=== PATIENT | female | born 1940 | race Caucasian/White ===

== ENCOUNTER → 2019-03-12 | Outpatient (CLI) | payer OTHER ==
[~2019-03-12] MED LIST: AMITRIPTYLINE H50 M2 PO; ARMOUR THYROID120 M1 PO; ARMOUR THYROID180 M1 PO; ASPIR 8181 MG PO; CHLORZOXAZONE500 MG PO; LEXAPRO 10 MG T10 M2 PO; LIPITOR 20 MG T20 M1 PO; MELATONIN5 M1 PO; MOBIC15 MG PO; NIFEDIPINE ER30 M1 PO; RELPAX40 MG PO; STOOL SOFTENER100 MG PO
== END ==
LOC: CAT 10:48
DX: M19.012 Primary osteoarthritis, left shoulder (principal); M25.712 Osteophyte, left shoulder; M25.812 Other specified joint disorders, left shoulder

== ENCOUNTER 2019-05-06 06:37 | Inpatient (IN) | payer OTHER ==
[2019-04-28 13:39] LABS: HEMATOCRIT 42.9 % (37.0-47.0); HEMOGLOBIN 14.1 gm/dL (12.0-15.0); MCHC 32.8 g/dL (28.0-37.0); MCV 85.3 fL (80.0-100.0); RBC 5.02 mil/uL (4.20-5.00); RDW 14.3 % (10.5-14.5); WBC 7.3 thou/uL (4.0-11.0)
[2019-04-28 13:45] LABS: CALCIUM 9.3 mg/dL (8.5-10.1); CREATININE 0.9 mg/dL (0.6-1.0); POTASSIUM 4.4 mmol/L (3.5-5.1)
[2019-04-28 13:47] LABS: PROTIME 10.5 Seconds (9.3-11.4)
[2019-04-28 13:49] LABS: URINE BILIRUBIN NEGATIVE (Negative); URINE BLOOD NEGATIVE (Negative); URINE CLARITY CLEAR; URINE COLOR YELLOW; URINE GLUCOSE-RANDOM* NEGATIVE (Negative); URINE KETONES NEGATIVE (Negative); URINE LEUKOCYTES-REFLEX NEGATIVE (Negative); URINE NITRITE-REFLEX NEGATIVE (Negative); URINE PROTEIN (DIPSTICK) NEGATIVE (Negative); URINE SPECIFIC GRAVITY <= 1.005 (1.005-1.035); URINE UROBILINOGEN 0.2 E.U./dl (0.2-1.0)
--- NOTE | 2019-04-28 14:14 | EKG ---
[address] [address] ELECTROCARDIOGRAM REPORT Name: MICHELL SHAH Room #: PRE IN M.RAnali#: [id number] Admission: Attend Phys: Domo Stuart Discharge: Date of : 42 Report #: [id number] THIS REPORT FOR: //name// [facility] Test Date: 2019-04-28 Test Time: 13:21:21 Pat Name: MICHELL SHAH Department: Room: Gender: F Aviation Electronics Technician: kevin : 1940 Requested By: Domo Duncan Order Number: [id number] MD: Leonard Madison Measurements Intervals [place] Rate: 82 P: 53 VT: 172 QRS: 11 QRSD: 88 T: 42 QT: 382 QTc: 446 Interpretive Statements Sinus rhythm Abnormal R-wave progression, early transition Compared to ECG 04/08/2018 10:53:39 No significant changes Electronically Signed On 04-28-2019 14:14:14 CDT by Leonard Madison [email or web address] <ELECTRONICALLY SIGNED> By: Leonard Madison MD 04/28/19 1414 1320 20 Leonard Madison MD /ANALI
[~2019-05-06] VITALS: Ht 162.6 cm; Wt 68.5 kg
[~2019-05-06 06:37] MED LIST changes: +ALEVE220 MG PO
[2019-05-06 07:00] VITALS: BP 157/82
[2019-05-06 13:12] VITALS: BP 136/79
--- NOTE | 2019-05-06 13:17 | NUR ---
Patient arrived on unit at 1200 after Left Total Shoulder Replacement. Patient is alert and oriented x's 4. She is wearing a shoulder immobilizer. Dressing is covered with Polar Barrie and Quan Bandage. She denies pain, fingers are still numb from the analgesic "block." Vital signs are stable. She is drinking clear liquids. She is wearing SCD's to bilateral lower legs. Will continue to monitor.
[2019-05-06 15:49] VITALS: BP 124/73
[2019-05-06 20:25] VITALS: BP 140/74
[2019-05-07 05:07] VITALS: BP 137/68
--- NOTE | 2019-05-07 05:10 | NUR ---
PT IS O/A X4.PT IS DAY 1 POST OP FOR LT TOTAL SHOULDER REPLACMENT WITH JUAN LUIS, JAKOB WRAP AND SHOULDER IMMOBILISER.PT HAS POLAR PACK AND SCD IN PLACE.PT UP WITH ASSIST TO BSC AND BATHROOM.PT REQUESTED FOR HOME ROUTINE MEDS TO BE STARTED AND WAS STARTED.CONTINUE POC TILL EOS
[2019-05-07 05:29] LABS: HEMATOCRIT 34.6 % (37.0-47.0); HEMOGLOBIN 11.6 gm/dL (12.0-15.0)
[2019-05-07 05:40] LABS: POTASSIUM 3.9 mmol/L (3.5-5.1)
--- NOTE | 2019-05-07 06:43 | NUR ---
PT C/O PAIN, DR HARRY LOPEZ,GOT A CALL BACK FROM HIS FISHING BOAT MATE, UNFORTUNATELY WHEN THE MED WAS VERIFIED,THERE WAS A PROBLEM ON THE INSTRUCTIONS.PT FINALLY GOT HER MED BUT NOT HAPPY THAT THE PHYSICIAN DID NOT PUT IN PAIN MED FOR HER.PT FELT BETTER AFTER SHE RECEIVED HER MED.
[2019-05-07 07:49] VITALS: BP 148/79
--- NOTE | 2019-05-07 11:47 | NUR ---
ASSESSMENT-PT LIVES IN A HOUSE, HER 24 Y/O GRANDDTR WHO WORKS NIGHTS & SLEEPS DURING THE DAY. PRIOR PT SAYS SHE WAS WALKING ON HER OWN AND DOING HER OWN ADLS. PT WILL NEED IMMOBILIZER FOR A NUMBER OF WEEKS. PT ASKING ABOUT GOING TO [facility] FOR REHAB AND SHE SAYS SHE HAS BEEN THERE BEFORE. CASE DISCUSSED WITH THERAPIES & THEY ARE REC. THIS WELL. WILL ASK DC BOWLING BALL PATCHER TO FAX REFERRAL TO [facility]. FOLLOWING TO ASSIST WITH DC PLANNING.
--- NOTE | 2019-05-07 12:04 | NUR ---
FAXED REFERRAL TO [facility] SPOKE WITH SANNA IN ADM SHE DOES NOT HAVE A BED AVAILABLE AT THIS TIME. DP TO FOLLOW.
--- NOTE | 2019-05-07 14:12 | NUR ---
PT DISCHARGING TODAY TO [facility] FAXED DC ORDERS/SUMMARY TO FACILITY SPOKE WITH JOLEEN IN ADM SHE RECEIVED DC ORDERS AND TRANSPORT ARRANGED BY [facility]IATR[facility]RETCHER WILDWOOD FOR 1829. SW NOTIFIED PT OF TIME AND SHE WILL NOTIFY FAMILY. [facility] FROM [facility] ONLY HAS A SEMI PVT RM AVAILABLE NOT AND WILL TRANSITION PT TO PVT RM ONCE AVAILABLE. UNIT NOTIFIED AND CHART COPY PER US. RN TO CALL REPORT TO [phone].
--- NOTE | 2019-05-07 14:32 | NUR ---
FAXED REFERRAL TO [facility] SPOKE WITH ALY IN ADM THEY RECEIVED REFERRAL BUT DO NOT HAVE A BED AVAILABLE TIL NEXT WEEK FOR SKILLED. [facility] SPOKE WITH ANTONIO IN ADM SHE RECEIVED REFERRAL AND WILL REVIEW LET HER KNOW THAT IF SHE CAN ACCEPT TO SUBMIT FOR AUTH. DP TO FOLLOW.
[2019-05-07 17:18] VITALS: BP 134/62
[2019-05-07 19:10] VITALS: BP 161/83
--- NOTE | 2019-05-07 19:59 | NUR ---
PATIENT PROGRESSING UP IN THE CHAIR AND UP TO BATHROOM WITH ASSISTANCE. PAIN CONTROLLED WITH PAIN MEDS DESIRED PAIN LEVEL REACHED AND ABLE TO NAP THIS AFTERNOON. TAKING PO WITHOUT NAUSEA OR EMESIS, IV FLUIDS DC'D AND IV IS SALINE LOCKED.
[2019-05-08 04:28] VITALS: BP 171/92
--- NOTE | 2019-05-08 07:42 | NUR ---
PATIENT ALERT AND ORIENTED X4. C/O PAIN, MED GIVEN. UP WITH ASSIST OF 1. POLAR PACK ON L SHOULDER WITH AN IMMOBILIZER. PASSING GAS BUT NO BM YET. SCD'S ON TWILA. COOPERATIVE. SLEPT OFF AND ON DURING NIGHT.
[2019-05-08 08:00] VITALS: BP 154/88
--- NOTE | 2019-05-08 11:10 | NUR ---
ASSUMED PATIENT CARE AT 7 AM. PATIENT IS ALERT AND ORIENTED X4, CALM, COOL, AND COOPERATIVE. PATIENT REPORTED PAIN OF A 4 ON A SCALE OF1-10 THIS MORNING AND HYDROCODONE WAS ADMINISTERED. PAIN WAS REASSESSED 45 MINUTES LATER AND THE PATIENT REPORTED PAIN AT A 2 ON A SCALE OF ONE TO TEN, PAIN WAS PARTIALLY RELIEVED. PATIENT WALKED THROUGH THE HALLWAY WITH PHYSICAL THERAPY WITHOUT INTOLERABLE PAIN. PHYSICAL THERAPIST STATED IN HIS OPINION SHE IS READY FOR DISCHARGE. PATIENT STATES SHE FEELS READY FOR DISCHARGE AND IS EXCITED TO LEAVE THE HOSPITAL.
[2019-05-08 11:23] VITALS: BP 154/88
[2019-05-08 13:21] VITALS: BP 154/88
--- NOTE | 2019-05-08 15:30 | NUR ---
PT DECIDED TO GO HOME WITH HH FAXED REFERRAL TO [facility] SPOKE WITH SARBJIT IN INTAKE SHE CAN ACCEPT PT AT DISCHARGE. FAXED DC ORDERS/SUMMARY RECEIVED CONFIRMATION AND THEY WILL NOTIFY PT TIME OF VISITS.
[2019-05-08 15:35] VITALS: BP 154/88
--- NOTE | 2019-06-10 11:38 | O ---
[facility] [place] [address] OPERATIVE REPORT Name: MICHELL SHAH Room #: 439-P [facility] IN M.R.#: [id number] Admission: 05/06/19 Attend Phys: Domo Stuart Discharge: 05/08/19 Date of : 42 Report #: [id number] THIS REPORT FOR: //name// CC: Domo Stephenson DATE OF SERVICE: 05/06/2019 PREOPERATIVE DIAGNOSES: Left shoulder pain, osteoarthritis, biceps tendinopathy. POSTOPERATIVE DIAGNOSES: Left shoulder pain, osteoarthritis, biceps tendinopathy. PROCEDURE PERFORMED: Left total shoulder arthroplasty with open biceps tenodesis. SURGEON: Domo Duncan MD OXYGEN TANK FILLER: Yasmine Rodriguez PA-C. ANESTHESIA: General with preoperative ultrasound-guided interscalene block. FLUIDS: Approximately 1000 mL of crystalloid. ESTIMATED BLOOD LOSS: Approximately 50 mL. IMPLANTS UTILIZED: De[employer] Global Unite size 12 stem and proximal body with 44 x 18 mm eccentric humeral head and a size 44 mm anchor peg glenoid. DESCRIPTION OF PROCEDURE: After proper identification of the patient and operative site in preoperative holding area, the operative site was signed by myself. Prophylactic antibiotics were given. The patient elected to receive an ultrasound-guided block after reviewing the risks, benefits, alternatives and potential complications with anesthesia. After a satisfactory block, the patient was brought back to the operative suite after induction of satisfactory general endotracheal anesthesia, left shoulder was examined. The patient's range of motion was limited in all planes as noted in the preoperative assessment. She was carefully positioned in the beach chair with head of bed elevated approximately 40 degrees. The limb was sterilely prepped and draped in usual manner and a [employer] limb positioning system was utilized throughout the entire procedure to aid in patient limb positioning. Final skin draping was with Ioban. Anterior deltopectoral approach was planned. Skin was incised sharply. Full thickness skin flaps were developed. Deltopectoral interval was identified. Cephalic vein was retracted. Subdeltoid space was bluntly freed up. A Eder deltoid retractor was used to retract the soft tissues. At this [facility] [address] [place] [address] OPERATIVE REPORT Name: MICHELL SHAH Room #: 439-P DIS IN M.R.#: [id number] Admission: 05/06/19 Attend Phys: Domo Stuart Discharge: 05/08/19 Date of : 42 Report #: [id number] point, the upper border of the pectoralis major was carefully divided. Biceps tenodesis was performed in the undersurface of the pectoralis major, which was then subsequently repaired. Proximal biceps was followed into the bicipital groove. Longitudinal split was noted as well as partial thickness tearing. Osteophytes were present within the bicipital groove, which were carefully removed with a rongeur. Anterior circumflex vessels were identified, ligated and cauterized. A lesser tuberosity osteotomy was performed. Capsule was released inferiorly off the humeral head. Advanced degenerative changes were noted about the glenohumeral joint. Supraspinatus, infraspinatus and teres minor was intact. At this point, an osteotomy of the humeral head was performed at 135 degrees in approximately 25 degrees of retroversion. Peripheral osteophytes were removed. The cuff remained intact. The humeral canal was reamed by hand up to a size 12 stem, which was slightly larger than what was templated preoperatively. A 44 x 18 mm eccentric humeral head provided the best overall recreation of the proximal humeral anatomy. Trial stem was inserted. Protection plate was placed. Subscapularis was then released from the anterior capsule labral tissues. Axillary nerve had been identified and protected throughout the entire procedure. At this point, the joint was carefully distracted with lamina class a regional drivers and remaining biceps tendon and labrum were circumferentially released. Inferior capsule was carefully released off the inferior glenoid. A 44 mm glenoid provided the best overall coverage and any soft tissue and peripheral osteophytes were carefully removed. Guide pin was inserted into the central aspect of the glenoid and its position was verified. Glenoid face was reamed in a 2-step process. Again, any small soft tissue peripherally was removed after sufficient glenoid reaming. Step drill was utilized. This bone was saved for bone grafting of the central peg and then the multipin anchor peg guide was carefully impacted into position. These were drilled. Derotation pegs were utilized. The anterior inferior peg had perforated portion of the cortex. The remaining drill holes were all contained. This was thoroughly irrigated with normal saline with antibiotic irrigant and a trial had been placed. This was stable, was well seated. This was removed. FloSeal was injected into these drill holes and then the glenoid was bone grafted as well as the cement was prepared on the back table. Suction and irrigation was used to remove the FloSeal. The superior and posterior inferior pegs were then cemented. Excess bone cement was removed. The glenoid was carefully impacted into position, held firmly in place while the cement had cured. This was provided excellent coverage and was well seated and stable. A plastic dura was used to protect this and then the humerus was prepared. The Global Unite brosteotome was utilized. Trial was inserted. A 44 x 18 mm eccentric humeral head provided the best overall recreation of the proximal humeral anatomy. Trial implants were removed. Four drill holes were placed within the anterior aspect of the humerus where #2 FiberWire was utilized for repair of the subscapularis. The inferior 2 sutures were passed around the Global Unite stem, which was prepared on the back table and after this was carefully impacted into position, the head was placed. It was impacted with the eccentricity placed more posterior and superior. This was reduced. There was a [facility] [address] [address] OPERATIVE REPORT Name: MICHELL SHAH Room #: 439-P DIS IN M.R.#: [id number] Admission: 05/06/19 Attend Phys: Domo Stuart Discharge: 05/08/19 Date of : 42 Report #: [id number] satisfactory recreation of the proximal humeral anatomy. The joint was stable, had approximately 50% translation posteriorly. Subscapularis was repaired with modified Oliver-Jatin technique with four #2 FiberWires and then the lateral portion of the rotator interval was closed. Joint was thoroughly irrigated with normal saline. One gram of vancomycin powder was utilized deep, half of it more superficial. Deltopectoral interval was closed with 0 Vicryl, 2-0 Vicryl for the more deeper subcutaneous tissues, final skin closure with a running 3-0 Monocryl. Dermabond was applied. Sterile dressing was applied as well as a sling and abduction pillow, which will be utilized for 4 weeks. Qualified miller first utilized throughout the entire procedure to aid in patient limb positioning, visualization and retraction of soft tissues, instrument passage, closure and sling and dressing application. <ELECTRONICALLY SIGNED> By: Domo Duncan MD 06/10/19 1138 1052 1150 Domo Duncan MD /nt
== END 2019-05-08 14:06 | disposition home health service (06) | DRG 483 ==
LOC: TBA 06:37 → 4S 06:37 → PRE 07:55 → 4S 10:45 → PRE 11:02 → 4S 05-07 12:26 → ENTRNSPT 05-08 13:44 → EDTRNSPTSTS 05-08 13:52 → 4S 05-08 14:06
PROVIDERS: Physician Assistant Surgical; ADMIT Orthopaedic Surgery Sports Medicine
PROC: 0RRK0JZ Replacement of Left Shoulder Joint with Synthetic Substitute, Open Approach (ICD-10-PCS; principal; 2019-05-06)
DX: M19.012 Primary osteoarthritis, left shoulder (principal); F41.9 Anxiety disorder, unspecified; F32.9 Major depressive disorder, single episode, unspecified; M75.22 Bicipital tendinitis, left shoulder; Z79.899 Other long term (current) drug therapy; Z88.2 Allergy status to sulfonamides; Z91.040 Latex allergy status
CPT/HCPCS: 10102; 50010; 50101; 50172; 50386; 50417; 50697; 50733; 50935; 51320; 51751; 52001; 52138; 52282; 53000; 53078; 54118; 55430; 56524; 56525; 56526; 56530; 57095; 57103; 62110; 62900; 64039; 70005